=== PATIENT | male | born 1990 | race African-American/Black ===

== ENCOUNTER 2024-01-03 14:11 | Emergency (ER) | payer OTHER ==
[2024-01-03] MEDS ORDERED: Morphine 4 MG/ML VIAL ONE ×2 (14:36→15:48)
[2024-01-03 14:52] LABS: Bilirubin Neg (Negative); Blood, Urine Negative (Negative); Clarity Clear (Clear); Glucose, Urine (Dipstick) Normal (Negative); Ketone, Urine Negative (Negative); Leukocyte 25 (Negative); Nitrite Negative (Negative); Protein, Urine (Dipstick) Negative (Neg-Trace)
[2024-01-03 15:16] LABS: Bacteria/HPF None Seen HPF (None Seen); CAUTI Indications for Culture Pelvic or flank pain; RBC/HPF None Seen HPF (0-3); Squamous Epithelial 0-3 HPF (0-3); WBC/HPF 0-3 HPF (0-3)
[2024-01-03 15:17] LABS: Urine Culture Reflex No No
[2024-01-03] MEDS ORDERED: Ketorolac Tromethamine 30 MG (1 mL) VIAL ONE (15:48)
== END 2024-01-03 16:22 | disposition home or self-care (01) ==
LOC: CSHERS 14:11
DX: N43.3 Hydrocele, unspecified (principal); N50.811 Right testicular pain; F17.290 Nicotine dependence, other tobacco product, uncomplicated
CPT/HCPCS: 76870; 81001; 93976; 96374; 96375; 96376; J1885; J2272

== ENCOUNTER 2024-12-19 20:53 | Emergency (ER) | payer OTHER ==
[2024-12-19] MEDS ORDERED: Acetaminophen 500 MG TAB ONE (21:54)
== END 2024-12-19 22:41 | disposition home or self-care (01) ==
LOC: CSHERS 20:53
DX: N45.1 Epididymitis (principal); I10 Essential (primary) hypertension; F17.290 Nicotine dependence, other tobacco product, uncomplicated
CPT/HCPCS: 76870; 93976; 99284